=== PATIENT | female | born 1955 | race Caucasian/White ===

== ENCOUNTER 2019-12-28 09:16 | Emergency (ER) | payer MEDICAID, SELFPAY ==
[2019-12-28] VITALS (19 sets, daily range): BP systolic 93–138; BP diastolic 59–94; PULSE 67–77; RESP 8–19; TEMP 36.8; O2SAT 90–100; BMI 24.4
--- NOTE | 2019-12-28 09:33 | XR_ITS ---
PROCEDURE: XR WRIST RT 2V CLINICAL INDICATION: FALL Posttraumatic pain and deformity COMPARISON: XR FOREARM RT 2V from 12/28/2019 FINDINGS: Comminuted distal radial fracture with intra-articular extension. There is dorsal displacement of the distal fracture fragment by 9 mm with dorsal angulation. There is associated impacted nondisplaced distal ulnar fracture with dorsal angulation. The proximal mid aspect of the forearm has an unremarkable appearance. IMPRESSION: Colles fracture of the right wrist with displacement of the distal radial fracture and dorsal angulation of the distal radial and ulnar fracture with intra-articular extension of the distal radial fracture Dictated by: Arpan Hand MD 12/28/2019 10:36 Electronically signed by Arpan Hand MD in [place] 12/28/2019 10:36
[2019-12-28 09:44] LABS: Basophils % 0.3 % (0.1-2.0); Eosinophils # 0.1 K/mm3 (0.0-0.4); Hematocrit 43.1 % (37.0-47.0); Hemoglobin 15.1 g/dL (12.2-16.2); Lymphocytes # 2.5 K/mm3 (0.7-4.5); Lymphocytes % 32.2 % (10-50); Mean Corpuscular Hemoglobin 31.5 pg (27.0-31.2); Mean Platelet Volume 8.7 fl (7.4-10.4); Monocytes # 0.4 K/mm3 (0.1-1.0); Monocytes % 5.7 % (1.7-9.3); Neutrophils # 4.7 K/mm3 (1.8-7.8); Neutrophils % 60.7 % (37.0-80.0); Platelet Count 159 K/mm3 (142-424); Red Blood Count 4.78 M/mm3 (4.20-5.40); Red Cell Distribution Width 13.8 % (11.5-17.5); White Blood Count 7.7 K/mm3 (4.8-10.8)
[2019-12-28 09:53] LABS: Chloride 92 mmol/L (98-107); Sodium 129 mmol/L (136-145)
[2019-12-28 09:55] LABS: Alanine Aminotransferase 19 U/L (12-78); Aspartate Amino Transferase 27 U/L (14-36); Blood Urea Nitrogen 9 mg/dl (7-17); Creatinine Clearance Estimated 61 mL/min (50-200); Estimated Glomerular Filt Rate 101 ml/min (>60); GFR (African American) 122 ML/MIN (>60)
--- NOTE | 2019-12-28 09:55 | PC.NURSE ---
Pt returned from rad.
[2019-12-28 09:56] LABS: Albumin Level 4.7 g/dl (3.5-5.0); Albumin/Globulin Ratio 1.7 (1.1-1.8); Alkaline Phosphatase 69 U/L (38-126); Bilirubin,Total 0.9 mg/dl (0.2-1.3); Calcium 9.8 mg/dl (8.4-10.2); Carbon Dioxide 29 mmol/L (22.0-30.0); Globulin 2.8 g/dL (1.3-3.2); Glucose 103 mg/dl (74-100); Total Protein,Serum 7.5 g/dl (6.3-8.2)
--- NOTE | 2019-12-28 10:33 | HMH.EDFALL ---
ED Disposition Clinical Impression: Displaced fracture of right radial styloid process, initial encounter for closed fracture Disposition: Home, Self-Care Condition on Discharge: Good Instructions: Wrist Fracture, How to Prevent Falls, DI for Moderate Sedation Additional Instructions: Please follow-up with Dr. Escamilla in orthopedics. Please car pick up driver your pain medication at the pharmacy. Prescriptions: Hydrocodone/Acetaminophen [[place] 10-325 Tablet] 1 tab PO Q4H PRN 3 Days #15 tab PRN Reason: Breakthru Moderate Pain Prescription Printed Referrals: Michelle Castaneda [Primary Care Provider] - - Critical Care Critical Care Time: No Attestation: On 12/28/19, the high probability of a clinically significant, sudden or life threatening deterioration of the following system(s) required my full and direct attention, intervention and personal management. The time I documented below is in addition to time spent performing reported procedures but includes the following listed in this critical care notation. Medical Decision Making - Medical Records Medical records reviewed: Yes: I reviewed the patient's medical records. - Ryley Inquiry Pt receiving controlled substance: No Vital Signs: 12/28/19 09:20 12/28/19 10:04 12/28/19 10:35 Pulse Rate [Radial] 77 71 75 Respiratory Rate 17 Blood Pressure [Right Arm] 100/60 L 107/67 L 106/59 L Blood Pressure Mean [Right Arm] 73 80 74 Blood Pressure Source [Right Arm] Automatic Cuff Automatic Cuff Automatic Cuff Blood Pressure Position [Right Arm] Sitting Sitting Sitting 02 Sat by Pulse Oximetry 99 97 97 Oxygen Delivery Method Room Air Room Air Room Air Oxygen Flow Rate (LPM) 12/28/19 11:05 12/28/19 11:42 12/28/19 12:08 Pulse Rate [Radial] 71 70 69 Respiratory Rate Blood Pressure [Right Arm] 128/78 138/86 132/66 Blood Pressure Mean [Right Arm] 94 103 88 Blood Pressure Source [Right Arm] Automatic Cuff Automatic Cuff Automatic Cuff Blood Pressure Position [Right Arm] Sitting Sitting Sitting 02 Sat by Pulse Oximetry 98 97 97 Oxygen Delivery Method Room Air Room Air Room Air Oxygen Flow Rate (LPM) 12/28/19 12:30 12/28/19 13:12 12/28/19 13:43 Pulse Rate [Radial] 67 70 68 Respiratory Rate 19 Blood Pressure [Right Arm] 119/77 99/67 L 126/94 H Blood Pressure Mean [Right Arm] 91 77 104 Blood Pressure Source [Right Arm] Automatic Cuff Automatic Cuff Automatic Cuff Blood Pressure Position [Right Arm] Sitting Sitting Supine 02 Sat by Pulse Oximetry 92 L 99 100 Oxygen Delivery Method Room Air Nasal Cannula Room Air Oxygen Flow Rate (LPM) 2 - Lab Data Lab results reviewed: Yes: I reviewed the patient's lab results. Lab Results 12/28/19 09:35: WBC 7.7, RBC 4.78, Hgb 15.1, Hct 43.1, MCV 90.0, MCH 31.5 H, MCHC 35.0, RDW 13.8, Plt Count 159, MPV 8.7, Neut % (Auto) 60.7, Lymph % (Auto) 32.2, O'Brien % (Auto) 5.7, Eos % (Auto) 1.0, Baso % (Auto) 0.3, Neut # (Auto) 4.7, Lymph # (Auto) 2.5, O'Brien # (Auto) 0.4, Eos # (Auto) 0.1, Baso # (Auto) 0.0 12/28/19 09:35: Sodium 129 L, Potassium 4.0, Chloride 92 L, Carbon Dioxide 29, Anion Gap 12.0, BUN 9, Creatinine 0.60, Estimated Creat Clear 61, Estimated GFR 101, Est GFR ( Amer) 122, Glucose 103 H, Calcium 9.8, Total Bilirubin 0.9, AST 27, ALT 19, Alkaline Phosphatase 69, Total Protein 7.5, Albumin 4.7, Globulin 2.8, Albumin/Globulin Ratio 1.7 Result diagrams: 12/28/19 09:35 12/28/19 09:35 Orders (Tests/Meds): ED MEDICATIONS Discontinued Medications Generic Name Dose Route Start Last Admin Trade Name Freq PRN Reason Stop Dose Admin Sodium Chloride 1,000 mls @ 999 mls/hr 12/28/19 09:45 12/28/19 09:40 Sod Chlor 0.9% 1000ml Bag IV 12/28/19 10:45 999 mls/hr .Q1H1M CODY Administration Morphine Sulfate 4 mg 12/28/19 09:35 12/28/19 09:40 Morphine 4mg/Ml Syringe IV 12/28/19 09:36 4 mg ONCE ONE Administration Morphine Sulfate 4 mg 12/28/19 11:47 12/28/19 11:48 Morphine 4mg/Ml Syringe I
--- NOTE | 2019-12-28 13:11 | PC.NURSE ---
Md and nurse at bedside doing reduction of pt's wrist.
--- NOTE | 2019-12-28 13:19 | XR_ITS ---
PROCEDURE: XR WRIST RT MIN 3V CLINICAL INDICATION: post reduction Follow-up fracture reduction COMPARISON: XR WRIST RT 2V from 12/28/2019 FINDINGS: Status post closed reduction. There has been interval improvement in the displacement and dorsal angulation of the distal radial and ulnar fractures with good alignment. There is a splint present laterally. IMPRESSION: Good alignment status post closed reduction distal radial and ulnar fracture Dictated by: Arpan Hand MD 12/28/2019 15:05 Electronically signed by Arpan Hand MD in [place] 12/28/2019 15:05
== END 2019-12-28 14:17 | disposition home or self-care (01) ==
PROVIDERS: Emergency Provider Family Medicine; PCP Family Medicine
DX: S52.511A Displaced fracture of right radial styloid process, initial encounter for closed fracture (principal); W01.0XXA Fall on same level from slipping, tripping and stumbling without subsequent striking against object, initial encounter; Y92.013 Bedroom of single-family (private) house as the place of occurrence of the external cause; E11.9 Type 2 diabetes mellitus without complications; F17.210 Nicotine dependence, cigarettes, uncomplicated; Z88.2 Allergy status to sulfonamides
CPT/HCPCS: 29125; 25605; 73090; 73100; 73110; 80053; 85025; 96365; 96367; 96375; 99285; J2405

== ENCOUNTER → 2020-01-08 09:55 | Outpatient (CLI) | payer MEDICAID, SELFPAY ==
--- NOTE | 2020-01-08 10:01 | XR_ITS ---
PROCEDURE: XR WRIST RT MIN 3V CLINICAL INDICATION: Rt wrist FX Fu COMPARISON: XR WRIST RT MIN 3V from 12/28/2019 XR WRIST RT 2V from 12/28/2019 FINDINGS: The cast has been removed. There is a healing comminuted distal radial fracture with good alignment of the distal fracture fragments with intra-articular involvement. Distal ulnar fracture also noted with good alignment. IMPRESSION: Healing distal radial and ulnar fractures Dictated by: Arpan Hand MD 01/08/2020 15:31 Electronically signed by Arpan Hand MD in [place] 01/08/2020 15:31
--- NOTE | 2020-01-08 12:44 | XR_ITS ---
PROCEDURE: XR CHEST 2V CLINICAL HISTORY: COPD COMPARISON: CXR CHEST(2 VIEWS-NOT PORTABLE) from 10/02/2013 CXR1 CHEST-PORTABLE from 05/28/2014 CXR2V XR chest 2V from 10/09/2017 FINDINGS: The cardiomediastinal silhouette and pulmonary vascularity are within normal limits. There is a small hiatal hernia. The remaining lungs are clear. There is some lobulation along the medial aspect the right hemidiaphragm which may be due to prominent pericardial fat pad similar to previous exams. There is mild thoracolumbar curvature convex right. IMPRESSION: No acute findings. Dictated by: Arpan Hand MD 01/08/2020 15:17 Electronically signed by Arpan Hand MD in [place] 01/08/2020 15:17
--- NOTE | 2020-01-08 12:46 | XR_ITS ---
PROCEDURE: XR HAND RT MIN 3V CLINICAL INDICATION: thumb swelling Coarse money for entrance in 0 0/okay cyst okay in its course which does gaseous in needed to give you credit card really do not much the at but exclude streaks worst is scratch STIR okay such she got all there again seen horse review the COMPARISON: XR FOREARM RT 2V from 12/28/2019 FINDINGS: Prominent bony hypertrophic changes involve the distal aspect of the 1st metacarpal with mild osteoarthritis of the 1st metacarpophalangeal joint. The hand is otherwise unremarkable. There is a healing fracture of the distal radius and ulna with good alignment. IMPRESSION: Prominent bony hypertrophy at the distal aspect of the 1st metacarpal with mild osteoarthritis Dictated by: Arpan Hand MD 01/08/2020 15:16 Electronically signed by Arpan Hand MD in [place] 01/08/2020 15:16
--- NOTE | 2020-01-08 13:56 | CT_ITS ---
PROCEDURE: CT WRIST RT WO CON CLINICAL HISTORY: PRE OP PLANNING Fracture evaluation, pain, preoperative evaluation. COMPARISON: XR WRIST RT MIN 3V from 01/08/2020 TECHNIQUE: Axial images obtained with sagittal and coronal reformats. All CT scans at the facility use one or more dose reduction, viz: automated exposure control, ma/kV adjustment per patient size (including targeted exams where dose is matched to indication, i.e. head), or iterative reconstruction technique. FINDINGS: There is comminuted distal radial fracture with both transverse and longitudinal components with the longitudinal components extending into the articular surface. The main fracture fragment distally is not significantly displaced. There is a lateral and dorsal fragment which is displaced laterally by 8 mm and dorsally by 4 mm. Longitudinal component of the fracture extends into the articular surface at this region. The transverse component extends into the radial ulnar joint. Nondisplaced comminuted fracture involves the distal aspect of the radius as well. There is mild widening of the scapholunate space which may indicate injury to the scapholunate ligament. There is an area of sclerosis involving the proximal pole of the scaphoid. No obvious carpal fracture. IMPRESSION: Comminuted and displaced distal radial and ulnar fracture as described above. Mild widening of the scapholunate space suggesting ligamentous injury Dictated by: Arpan Hand MD 01/09/2020 09:01 Electronically signed by Arpan Hand MD in [place] 01/09/2020 09:01
[2020-01-08 14:22] LABS: Basophils # 0.1 K/mm3 (0-0.2); Basophils % 0.5 % (0.1-2.0); Eosinophils # 0.1 K/mm3 (0.0-0.4); Eosinophils % 1.3 % (0.1-12.0); Hematocrit 45.9 % (37.0-47.0); Hemoglobin 15.2 g/dL (12.2-16.2); Lymphocytes # 3.6 K/mm3 (0.7-4.5); Lymphocytes % 36.4 % (10-50); Mean Corpuscular HGB Conc 33.1 g/dL (31.8-35.4); Mean Corpuscular Hemoglobin 30.9 pg (27.0-31.2); Mean Corpuscular Volume 93.2 fl (81-99); Monocytes # 0.4 K/mm3 (0.1-1.0); Monocytes % 4.1 % (1.7-9.3); Neutrophils # 5.7 K/mm3 (1.8-7.8); Neutrophils % 57.8 % (37.0-80.0); Platelet Count 295 K/mm3 (142-424); Red Blood Count 4.92 M/mm3 (4.20-5.40); Red Cell Distribution Width 13.6 % (11.5-17.5); White Blood Count 9.8 K/mm3 (4.8-10.8)
[2020-01-08 15:48] LABS: Chloride 94 mmol/L (98-107); Sodium 137 mmol/L (136-145)
[2020-01-08 15:49] LABS: Potassium 4.7 mmoL/L (3.5-5.1)
[2020-01-08 15:51] LABS: Alanine Aminotransferase 17 U/L (12-78); Albumin Level 4.6 g/dl (3.5-5.0); Albumin/Globulin Ratio 1.7 (1.1-1.8); Alkaline Phosphatase 61 U/L (38-126); Aspartate Amino Transferase 27 U/L (14-36); Bilirubin,Total 0.7 mg/dl (0.2-1.3); Blood Urea Nitrogen 8 mg/dl (7-17); Estimated Glomerular Filt Rate 124 ml/min (>60); GFR (African American) 150 ML/MIN (>60); Globulin 2.7 g/dL (1.3-3.2); Total Protein,Serum 7.3 g/dl (6.3-8.2)
[2020-01-08 15:52] LABS: Anion Gap 14.7 mEq/L (5-15); Calcium 10.3 mg/dl (8.4-10.2); Carbon Dioxide 33 mmol/L (22.0-30.0); Glucose 90 mg/dl (74-100)
[2020-01-08 18:41] LABS: Coronavirus 19 IgG Antibody Negative (Negative); Coronavirus 19 IgM Antibody Negative (Negative)
== END ==
PROVIDERS: PCP Family Medicine; Visit Provider Orthopaedic Surgery
DX: Z01.818 Encounter for other preprocedural examination (principal); M79.89 Other specified soft tissue disorders; S52.511A Displaced fracture of right radial styloid process, initial encounter for closed fracture; S52.571D Other intraarticular fracture of lower end of right radius, subsequent encounter for closed fracture with routine healing
CPT/HCPCS: 36415; 71046; 73110; 73130; 73200; 80053; 85025; 86328; 87070; 87077; 87205

== ENCOUNTER → 2020-01-08 13:44 | Outpatient (CLI) | payer MEDICAID, SELFPAY ==
--- NOTE | 2020-01-08 | ECG_ITS ---
APPROVED REPORT Exam: Resting ECG HR:74 bpm ECG Measurements Heart Rate 74 AXES IL 146 P 57 QRSd 70 QRS 90 QT 396 T 74 QTc 439 <Conclusion> Normal sinus rhythm Rightward axis Incomplete RBBB Borderline ECG Electronically signed by : Jesus Simmons, 01/08/2020 15:06:11
== END ==
PROVIDERS: Visit Provider Orthopaedic Surgery
DX: Z01.818 Encounter for other preprocedural examination (principal)
CPT/HCPCS: 36415; 80053; 85025; 86328; 87070; 87205; 93005

== ENCOUNTER 2020-01-09 11:49 | Day surgery (SDC) | payer MEDICAID, SELFPAY ==
[2020-01-08 15:25] VITALS: BMI 24.4
[2020-01-09] VITALS (10 sets, daily range): BP systolic 111–137; BP diastolic 70–91; PULSE 72–94; RESP 16–20; TEMP 36.3–43; O2SAT 91–98
--- NOTE | 2020-01-09 | XR_ITS ---
PROCEDURE: XR WRIST RT 2V CLINICAL INDICATION: RIGHT ORIF IN OR COMPARISON: No exams were available for comparison FINDINGS: Fluoroscopy time: 5 minutes and 36 seconds. Multiple images submitted with the C-arm during ORIF of the distal radial fracture. Anterior and posterior bone plates were placed with good alignment of the fracture fragments. There is good alignment of the distal ulnar fracture fragment as well.There is some mild widening of the scapholunate space which may be due to ligamentous injury. IMPRESSION: Good alignment status post ORIF distal radial and ulnar fractures Dictated by: Arpan Hand MD 01/09/2020 21:15 Electronically signed by Arpan Hand MD in [place] 01/09/2020 21:15
[2020-01-09 12:48] LABS: POC Glucose,Bedside 98 (70-110)
--- NOTE | 2020-01-09 13:31 | P.PN_ITS ---
[facility] Anesthesia Checklist - Patient Identification Patient Identification: Arm Band - Structural Data Admitted From: Home Planned Operative Procedure/s: orif right distal radius Consent for Planned Operative Procedure(s) Verified: Yes Verified Documents: Surgical Consent, History and Physical - NPO Status Verified Time NPO: 00:00 - Additional verifications Anesthesia Reactions: No Hx Blood Transfusions: No Blood Transfusion Reaction: No - Airway Assessment C-Spine Mobility Assessed: Yes (mp2) TMJ Mobility Assessed: Yes Dentition: Poor Dentition - Neurological Assessment Level of Consciousness: Awake, Alert - Anesthesia Plan Anesthesia Risk discussed: Yes Anesthesia Plan: Verified ASA Class: III Anesthesia Type: General w/block (supraclavicular- risks/benefits explained. Pt verbalized understanding) [facility] History I have reviewed the patient's past medical history: Yes Medical History: Reports:: Anxiety, Chronic Obstructive Pulmonary Disease (COPD), Depression, Diabetes Mellitus Type 2, Hypertension Denies:: Cancer, Diabetes Mellitus Type 1, Internal Pacemaker, MRSA, Seizures *Have you ever received a pneumonia vaccine?: Yes *Have you received a flu vaccine this season?: Yes Other Medical History: Denies: Blood Transfusion Reaction Anesthesia experience/problems:: nac Other Surgeries: Yes: , Other. No: Pacemaker Amputation: No Fractures: Yes (R Wrist, L leg) - *Social History Last grade of school completed: 7th or 8th Smoking Status: Current every day smoker Tobacco Type: cigarettes # Packs/Day (cigarettes): 1 Alcohol Intake: never Alcohol Intake Frequency:: a few times a week Substance Use Type: denies use *Occupational Status:: disabled Housing: house Household Members: none *Travel in the last 8 weeks: None Family Hx:: No significant family history
--- NOTE | 2020-01-09 18:54 | HMH.ANESI ---
[facility] Anesthesia Record Part I Intake, IV Amount: 1,600 Estimated blood loss (mL): 5 Urine output (mL): 0 (NM) Blood Products used (#): none Blood Pressure: 123/91 SaO2: 95 Pulse Rate: 94 Respiratory Rate: 16 Temperature: 97.3 F Patient is:: Awake, Drowsy, Nasal O2, Stable Stable to PACU at:: 18:47
--- NOTE | 2020-01-09 19:11 | HMH.OPNOTE ---
Date of procedure: 01/10/20 Pre-op Diagnosis:: R distal radius fracture Post-op Diagnosis:: R distal radius fracture Procedure performed:: ORIF R distal radius fracture Surgeon:: Katie Curits MD Transmission Specialist(s):: Esperanza Curran EQUIPMENT VALIDATION SPECIALIST:: David Arenas Anesthesia: GETA, regional Estimated blood loss (mL): 25 Clinical Note:: 64yo RHD F who sustained an injury to the R wrist on 12/28/19. She tripped over a rug at home and fell onto the outstretched R arm. There was immediate pain and deformity when she landed, and she presented to the ER at [facility] for evaluation. Closed reduction was performed by the ER, but the applied splint led to severe swelling, blistering, and the need to cut off her rings in clinic. Over the following week, her pain and swelling improved. She denies numbness or tingling in the fingers. She reports having broken this twice in the past, but both times she was treated non-operatively. She is unsure what the specific fracture was each time; she was treated in [place] and we have been unable to locate her records. She is a smoker. I discussed treatment options with the patient, including the risks and benefits of both operative and nonoperative treatments. This is a highly unstable fracture pattern and the patient is fairly young and this is her dominant hand; I recommend surgical treatment. I discussed the risks of surgery with the patient, including but not limited to: bleeding, infection, neurovascular damage, hardware failure, malunion, nonunion, persistent pain and/or stiffness, and need for revision surgery. I also discussed at length her increased risk of nonunion or loss of reduction given her status is a heavy smoker, as well as the osteopenia seen on her x-ray. The patient vocalized understanding of the above and desires to proceed with surgery. Informed consent was obtained. Operative findings:: comminuted, intra-articular R distal radius fracture IMPLANTS: [employer] Geminus Distal Radius System (volar) 4-hole standard Right plate distal fixation = 2.3mm locking screws x 7 shaft fixation = 3.5mm cortical/non-locking + locking screws x4 [employer] EVOS mini frag set; 6-hole Y plate 2.4mm (dorsal) 2.4mm locking screws x6 Operative note:: The patient was identified in preoperative holding and the right arm signed by myself. Consent was verified with the patient and all questions answered. She was seen by anesthesia and supraclavicular nerve block administered to the right upper extremity. The patient was then transferred to the OR and placed supine on the operative table with a hand table under the right upper extremity. All bony prominences were well-padded and SCDs placed on bilateral lower extremities. 2 grams cefazolin was infused and general endotracheal anesthesia induced. Once the patient was asleep, her splint was removed and a nonsterile tourniquet placed on the upper right arm. The right arm was then prepped and draped in the usual sterile fashion. Timeout was performed, identifying the correct patient, correct procedure, and correct site. The procedure was begun by bringing in the C-arm to confirm the site of the fracture in the right distal radius; a non-displaced fracture was seen in the distal ulna as well. The desired surgical incision was drawn over the volar aspect of the right wrist, centered over the flexor carpi radialis tendon and extending from the distal wrist flexion crease approximately 8 cm proximally. The arm was then exsanguinated with an Esmarch and the tourniquet inflated to 250 mmHg. The skin was incised with a sterile 15 blade and subcutaneous tissue bluntly dissected with tenotomy scissors. The subcutaneous tissue was spread until the FCR was identified. I incised the anterior FCR tendon sheath and retracted the tendon ulnarly with a ragnell retractor. I next incised the posterior tendon sheath and spread the underlying tissue, exposing the FPL tendon and the FDS to the index f
--- NOTE | 2020-01-09 19:18 | XR_ITS ---
PROCEDURE: XR WRIST RT 2V CLINICAL INDICATION: post op ORIF Follow-up surgery COMPARISON: XR WRIST RT MIN 3V from 12/28/2019 XR WRIST RT 2V from 12/28/2019 XR WRIST RT MIN 3V from 01/08/2020 FINDINGS: There is a splint in place. There has been prior ORIF of the distal radial fracture. There is both a dorsal and an anterior bone plate present with good alignment of the fracture fragments. IMPRESSION: Good alignment status post ORIF distal radial fracture Dictated by: Arpan Hand MD 01/09/2020 20:50 Electronically signed by Arpan Hand MD in [place] 01/09/2020 20:50
--- NOTE | 2020-01-10 06:49 | HMH.ANESII ---
[facility] Anesthesia Record Part II Discharge Time: 20:17 Destination: Surgical Day Care (OP Surgery) PACU nurse assessment reviewed?: Yes Patient Condition:: Good Anesthesia Complications:: None Swallowing reflex intact?: Yes Cyanosis?: No Blood Pressure: 111/72 Pulse Rate: 80 Temperature: 97.6 F Mental Status: Alert & Oriented Pain level:: 0 Nausea and/or vomitting:: None Intake, IV Amount: 0
[2020-01-10 06:54] VITALS: BP 111/72; PULSE 80; TEMP 36.4
== END 2020-01-09 19:52 | disposition home or self-care (01) ==
LOC: OR 11:50
PROVIDERS: PCP Family Medicine; Visit Provider Orthopaedic Surgery
PROC: (CPT 25608; principal; 2020-01-09 13:30)
DX: S52.571A Other intraarticular fracture of lower end of right radius, initial encounter for closed fracture (principal); E11.9 Type 2 diabetes mellitus without complications; Z72.0 Tobacco use; Z88.2 Allergy status to sulfonamides; S52.601A Unspecified fracture of lower end of right ulna, initial encounter for closed fracture; W01.0XXA Fall on same level from slipping, tripping and stumbling without subsequent striking against object, initial encounter; Y92.019 Unspecified place in single-family (private) house as the place of occurrence of the external cause; Z79.84 Long term (current) use of oral hypoglycemic drugs
CPT/HCPCS: 25608; 73100; 76000; 82962; 96374; C1713; C1776; J0670; J2405

== ENCOUNTER → 2020-01-19 13:51 | Outpatient (CLI) | payer MEDICAID, SELFPAY ==
--- NOTE | 2020-01-19 13:57 | XR_ITS ---
PROCEDURE: XR WRIST RT MIN 3V CLINICAL INDICATION: s/p ORIF Rt DRF COMPARISON: Follow-up ORIF FINDINGS: Status post distal radial fracture with volar and a dorsal bone plate with good alignment. Good alignment distal ulnar fracture. Cast has been removed The joint spaces are well-preserved. No significant degenerative/arthritic changes. No erosive changes evident. Other findings:None. IMPRESSION: Good alignment status post ORIF distal radial and ulnar fracture. Dictated by: Arpan Hand MD 01/19/2020 14:50 Electronically signed by Arpan Hand MD in [place] 01/19/2020 14:50
== END ==
PROVIDERS: PCP Family Medicine; Visit Provider Orthopaedic Surgery
DX: S52.501A Unspecified fracture of the lower end of right radius, initial encounter for closed fracture (principal); S52.601A Unspecified fracture of lower end of right ulna, initial encounter for closed fracture
CPT/HCPCS: 73110

== ENCOUNTER → 2020-02-09 12:16 | Outpatient (CLI) | payer MEDICAID, SELFPAY ==
--- NOTE | 2020-02-09 | XR_ITS ---
PROCEDURE: XR WRIST RT MIN 3V CLINICAL INDICATION: POST CAST REM Follow-up ORIF/cast removal COMPARISON: No exams were available for comparison FINDINGS: There is a bone plate present anteriorly with multiple screws stabilizing the distal radial fracture with good alignment. Healing distal ulnar fracture also noted. There is generalized osteopenia. Other findings:None. IMPRESSION: Good alignment healing distal radial and ulnar fractures Dictated by: Arpan Hand MD 02/09/2020 14:12 Arpan Hand MD in [place] 02/09/2020 14:12
== END ==
PROVIDERS: PCP Family Medicine; Visit Provider Orthopaedic Surgery
DX: S52.509A Unspecified fracture of the lower end of unspecified radius, initial encounter for closed fracture (principal); S52.609A Unspecified fracture of lower end of unspecified ulna, initial encounter for closed fracture
CPT/HCPCS: 73110

== ENCOUNTER 2020-02-09 14:12 | Outpatient (RCR) | payer MEDICAID, SELFPAY | END 2020-02-09 14:35 | disposition home or self-care (01) | LOC: OT 14:12 | PROVIDERS: Visit Provider Orthopaedic Surgery | DX: S52.571D Other intraarticular fracture of lower end of right radius, subsequent encounter for closed fracture with routine healing (principal) | CPT/HCPCS: 97763 ==

== ENCOUNTER → 2020-03-18 12:55 | Outpatient (CLI) | payer MEDICAID, SELFPAY ==
--- NOTE | 2020-03-18 13:02 | XR_ITS ---
PROCEDURE: XR WRIST RT MIN 3V CLINICAL INDICATION: RT wrist fx Follow-up fracture COMPARISON: CR XR WRIST RT MIN 3V from 12/28/2019 CR XR WRIST RT MIN 3V from 01/08/2020 CR XR WRIST RT MIN 3V from 01/19/2020 CR XR WRIST RT MIN 3V from 02/09/2020 FINDINGS: Status post ORIF distal radius with volar bone plate and dorsal bone plate stabilizing the distal radial fracture which is in good alignment. There is a healing fracture of the distal aspect of the ulna at the diaphyseal metaphyseal junction with increasing callus formation. There is diffuse osteopenia with an area of sclerosis involving the scaphoid IMPRESSION: Good alignment status post ORIF distal radius Dictated by: Arpan Hand MD 03/18/2020 14:14 Arpan Hand MD in [place] 03/18/2020 14:14
== END ==
PROVIDERS: PCP Family Medicine; Visit Provider Orthopaedic Surgery
DX: S52.511A Displaced fracture of right radial styloid process, initial encounter for closed fracture (principal)
CPT/HCPCS: 73110

== ENCOUNTER → 2020-05-06 13:41 | Outpatient (CLI) | payer MEDICAID, SELFPAY ==
--- NOTE | 2020-05-06 13:47 | XR_ITS ---
PROCEDURE: XR WRIST RT MIN 3V CLINICAL INDICATION: RT wrist; dos: 01/09/2020 Follow-up surgery COMPARISON: CR XR WRIST RT MIN 3V from 01/08/2020 CR XR WRIST RT MIN 3V from 01/19/2020 CR XR WRIST RT MIN 3V from 02/09/2020 CR XR WRIST RT MIN 3V from 03/18/2020 FINDINGS: Status post ORIF. Morris shaped volar bone plate is present along with a dorsal bone plate at the distal radius with good alignment of the fracture fragments. There is a healing fracture of the distal ulna with good alignment. There are osteoarthritic changes of the wrist. There is some sclerosis noted at the proximal pole of the scaphoid which could be related to developing avascular necrosis. There is mild prominence of the scapholunate joint. Severe osteoarthritis noted at the 1st metacarpal-carpal joint with prominent bony hypertrophy. IMPRESSION: Good alignment status post ORIF distal radius. Possible developing avascular necrosis of the scaphoid. Prominent scapholunate space Dictated by: Arpan Hand MD 05/06/2020 14:56 Arpan Hand MD in [place] 05/06/2020 14:56
== END ==
PROVIDERS: PCP Family Medicine; Visit Provider Orthopaedic Surgery
DX: S52.511A Displaced fracture of right radial styloid process, initial encounter for closed fracture (principal)
CPT/HCPCS: 73110